=== PATIENT | male | born 1975 | race Caucasian/White ===

== ENCOUNTER 2022-07-17 09:03 | Emergency (ER) | payer MEDICAID, SELFPAY ==
[2022-07-17 10:35] VITALS: BP 144/90; PULSE 94; RESP 18; TEMP 36.7; O2SAT 97; BMI 33.2
[2022-07-17] MEDS: Ondansetron ODT 4 MG TAB.RAPDIS TRANSLINGU (10:44)
[2022-07-17 10:55] LABS: MANUAL DIFF FLAG NO
[2022-07-17 11:02] LABS: Basophils Percent Auto 0.2 % (0-2); Eosinophils Absolute Auto 0.1 X10*3/uL (0.0-0.4); Eosinophils Percent Auto 0.5 % (0-4); Imm Gran Abs Auto 0.07 X10*3/uL (0.00-0.03); Imm Gran Pct Auto 0.5 % (0.0-0.4); Lymphocytes Absolute Auto 2.3 X10*3/uL (1.2-4.9); Lymphocytes Percent Auto 16.6 % (20-40); Mean Corpuscular HGB Conc 33.3 g/dl (31.0-36.0); Mean Corpuscular Hemoglobin 26.8 pg (27.0-33.0); Mean Corpuscular Volume 80.3 fL (80.0-98.0); Mean Platelet Volume 8.8 fL (9.4-12.4); Monocytes Absolute Auto 1.1 X10*3/uL (0.1-1.2); Monocytes Percent Auto 8.4 % (2-11); Neutrophils Absolute Auto 10.1 x10*3/uL (2.0-8.3); Neutrophils Percent Auto 73.8 % (45-73); Platelet Count 366 X10*3/uL (160-400); Red Blood Count 5.23 X10*6/uL (4.60-5.80); Red Cell Distribution Width 13.5 % (11.0-16.0); White Blood Count 13.7 X10*3/uL (4.8-10.8)
[2022-07-17 11:38] LABS: Anion Gap 18 (12-20); Blood Urea Nitrogen 23 mg/dL (9-16); Calcium 9.6 mg/dL (8.4-10.2); Carbon Dioxide 30 mmol/L (22-29); Chloride 91 mmol/L (96-108); Creatinine Clr Calc Pharmacy 111.9; Estimated Glomerular Filt Rate > 60; Glucose Random 132 mg/dL (60-115); Magnesium 2.2 mg/dL (1.6-2.6); Potassium 3.4 mmol/L (3.3-5.1); Sodium 136 mmol/L (135-145)
[2022-07-17 12:24] VITALS: BP 155/94; PULSE 94; RESP 18; TEMP 36.7; O2SAT 96
--- NOTE | 2022-07-17 12:31 | ED_ITS ---
HPI - General Adult General Chief complaint: General Medical <Martin Miles - Last Filed: 07/17/22 12:31> Stated complaint: fever, dizzy, cramping <Martin Miles - Last Filed: 07/17/22 12:31> Time Seen by Provider: 07/17/22 16:57 <Martin Miles - Last Filed: 07/17/22 12:31> Source: patient <Calista Forbes NP - Last Filed: 07/17/22 23:00> Mode of arrival: ambulatory <Calista Forbes NP - Last Filed: 07/17/22 23:00> Limitations: no limitations <Calista Forbes NP - Last Filed: 07/17/22 23:00> History of Present Illness HPI narrative: 47-year-old male presents with muscle spasming in his legs and cramping in his abdomen over the past few days. He just started taking chlorthalidone for elevated blood pressure 4 days ago. He does report a subjective fever, and has intermittent dizziness. He does not describe any chest pain or pressure, cough, palpitations, shortness breath, abdominal pain, dysuria, hematuria, or weakness. <Calista Forbes NP - Last Filed: 07/17/22 23:00> Onset (ago): day(s) (4) <Calista Forbes NP - Last Filed: 07/17/22 23:00> Location: abdomen, left, right and lower extremity <Calista Forbes NP - Last Filed: 07/17/22 23:00> Radiation: non-radiation <Calista Forbes NP - Last Filed: 07/17/22 23:00> Severity: moderate <Calista Forbes NP - Last Filed: 07/17/22 23:00> Severity scale (1-10): 6 <Calista Forbes NP - Last Filed: 07/17/22 23:00> Quality: other (Cramping) <Calista Forbes NP - Last Filed: 07/17/22 23:00> Pain Consistency: intermittent <Calista Forbes NP - Last Filed: 07/17/22 23:00> Relieving factors: none <Calista Forbes NP - Last Filed: 07/17/22 23:00> Associated symptoms: fever/chills <Calista Forbes NP - Last Filed: 07/17/22 23:00> Treatments prior to arrival: none <Calista Forbes NP - Last Filed: 07/17/22 23:00> Related Data Home medications: Previous Rx's Medication Instructions Recorded losartan 25 mg tablet 25 mg PO DAILY #30 tabs 07/17/22 ondansetron 4 mg disintegrating 4 mg PO Q8H PRN nausea and 07/17/22 tablet vomiting #7 tabs <Martin Miles - Last Filed: 07/17/22 12:31> Allergies/adverse reactions: Allergies Allergy/AdvReac Type Severity Reaction Status Date / Time No Known Allergies Allergy Verified 07/17/22 10:34 <Martin Miles - Last Filed: 07/17/22 12:31> Review of Systems Review of Systems: Constitutional: Subjective Fever, No Chills Cardiovascular: No Chest Pain, No SOB Respiratory: No Cough, No Dyspnea Gastrointestinal: No Nausea, No Vomiting, No Diarrhea, positive abdominal cramping Genitourinary: No Dysuria, No Hematuria Musculoskeletal: positive leg cramping, No Myalgias, No Joint Swelling Skin: No Skin lacerations, No rash Neuro: No Weakness, No Numbness, No Paresthesias, positive Dizziness, No Headache <Calista Forbes NP - Last Filed: 07/17/22 23:00> Yes all other systems are reviewed and are negative <Calista Forbes NP - Last Filed: 07/17/22 23:00> [facility] Past Medical History Attestation statement: The following information was validated with the patient. <Calista Forbes NP - Last Filed: 07/17/22 23:00> Source: old records reviewed <Calista Forbes NP - Last Filed: 07/17/22 23:00> Social History Social History: Social History Advance Directives: No Advance Directives Information Provided: No <Martin Miles - Last Filed: 07/17/22 12:31> Physical Exam ED Vital Signs: Vital Signs - 24 hr 07/17/22 10:35 07/17/22 12:24 07/17/22 15:19 Temperature 98.1 F 98.0 F Pulse Rate 94 94 82 Respiratory Rate 18 18 18 Blood Pressure 144/90 H 155/94 H 159/90 H Pulse Oximetry 97 96 98 Oxygen Delivery Method Room Air Room Air Room Air 07/17/22 19:39 Temperature Pulse Rate 75 Respiratory Rate 16 Blood Pressure 132/78 Pulse Oximetry 97 Oxygen Delivery Method Room Air BMI result Body Mass Index 33.2 <Martin Miles - Last Filed: 07/17/22 12:31> Vital Signs - 24 hr 07/17/22 10:35 07/17/22 12:24 07/17/22 15:19 Temperature 98.1 F 98.0 F Pulse Rate 94 94 82 Respiratory Rate 18 18 18 Blood Pressure 144/90 H 155/94 H 159/90 H Pulse Oximetry 97 96 98 Oxygen Delivery Method Room Air Room Air Room Air 07/17/22 19:39 Temperature Pulse Rate 75 Respiratory Rate 16 Blood Pressure 132/78 Pulse Oximetry 97 Oxygen Delivery Method Room Air BMI result Body Mass Index 33.2 <Calista Forbes NP - Last Filed: 07/17/22 23:00> Appearance: Alert. Oriented X3. No acute distress. Eyes: Pupils equal, round and reactive to light. Sclera nonicteric ENT: Pharynx normal. Neck: Normal inspection. Neck supple. No vertebral tenderness or step-offs. No nuchal rigidity. No mastoid tenderness. CVS: Normal heart rate and rhythm. Pulses normal. Respiratory: No respiratory distress. Lung sounds clear to auscultation all lobes. Abdomen: Soft and nontender. No rebound or rigidity. No distention. No CVA tenderness. Skin: Skin warm and dry. Normal skin color. Normal skin turgor. Extremities: No lower extremity edema. Gait well-balanced well coordinated. Neuro: No motor deficit. No sensory deficit. Cranial nerves 2-12 intact <Calista Forbes NP - Last Filed: 07/17/22 23:00> Course Course Course Narrative: 47-year-old male presents for evaluation of abdominal cramping, he muscle spasms. Patient reports that he was started on chlorthalidone 4 days ago. Reports subjective fevers but is afebrile here. <Martin Carbajal Filed: 07/17/22 12:31> 47-year-old male presents for evaluation of abdominal cramping, he muscle spasms. Patient reports that he was started on chlorthalidone 4 days ago. Reports subjective fevers but is afebrile here. Patient is on methadone. Physical exam is unremarkable. Alert oriented x4. Answering questions politely and appropriately. No report of additional substance use with methadone. No indication of source of infection. COVID influenza RSV are negative. Lab values indicate an elevated white count of 13.7, BUN of 23. Glucose is elevated at 132, consistent with patient's history of diabetes. Do not have any prior labs for this patient. Will give 2 L of fluids for suspected dehydration. 17:36 2 L of fluid infusing. Plan of care is to discharge home with medication change from chlorthalidone to losartan. Patient does understand that he must follow up with his primary care physician to update them that had an adverse reaction to the chlorthalidone as well as an elevated BUN, suspected to be from either dehydration or medication reaction. Patient verbalized understanding of discharge instructions. Verbalized understandings of signs and symptoms indicating need for emergent intervention. <Calista Forbes NP - Last Filed: 07/17/22 23:00> Medications Administered Discontinued Medications Generic Name Dose Route Start Last Admin Trade Name Freq PRN Reason Stop Dose Admin Sodium Chloride 1,000 mls @ 999 mls/hr 07/17/22 17:00 07/17/22 20:10 Ns IVCONT 07/17/22 18:00 Infused .Q1H1M JULIUS Infusion Sodium Chloride 1,000 mls @ 999 mls/hr 07/17/22 17:15 07/17/22 20:10 Ns IVCONT 07/17/22 18:15 Infused .Q1H1M JULIUS Infusion Ondansetron HCl 4 mg 07/17/22 10:41 07/17/22 10:44 Ondansetron Odt 4 Mg Tab.Irvingdis TRANSLINGU 07/17/22 10:42 4 mg ONCE ONE Administration <Martin Miles - Last Filed: 07/17/22 12:31> Medications Administered Discontinued Medications Generic Name Dose Route Start Last Admin Trade Name Freq PRN Reason Stop Dose Admin Sodium Chloride 1,000 mls @ 999 mls/hr 07/17/22 17:00 03/22/23 20:10 Ns IVCONT 07/17/22 18:00 Infused .Q1H1M JULIUS Infusion Sodium Chloride 1,000 mls @ 999 mls/hr 07/17/22 17:15 07/17/22 20:10 Ns IVCONT 07/17/22 18:15 Infused .Q1H1M JULIUS Infusion Ondansetron HCl 4 mg 07/17/22 10:41 07/17/22 10:44 Ondansetron Odt 4 Mg Tab.Rapdis TRANSLINGU 07/17/22 10:42 4 mg ONCE ONE Administration <Calista Forbes NP - Last Filed: 07/17/22 23:00> Medical Decision Making Differential Diagnosis Differential Diagnoses: The differential diagnosis associated with the presentation includes <Calista Forbes NP - Last Filed: 07/17/22 23:00> Adverse reaction to medication, viral gastroenteritis, viral syndrome < Calista Forbes NP - Last Filed: 07/17/22 23:00> Lab Data MDM Lab Attestation statement: I reviewed the patient's lab results. <Calista Forbes NP - Last Filed: 07/17/22 23:00> Result Diagrams: 07/17/22 10:51 07/17/22 10:51 <Martin Miles - Last Filed: 07/17/22 12:31> Labs: Lab Results 07/17/22 07/17/22 07/17/22 Range/Units 10:51 10:51 14:43 WBC 13.7 H (4.8-10.8) X10*3/uL RBC 5.23 (4.60-5.80) X10*6/uL Hgb 14.0 (14.0-18.0) g/dl Hct 42.0 (42.0-52.0) % MCV 80.3 (80.0-98.0) fL MCH 26.8 L (27.0-33.0) pg MCHC 33.3 (31.0-36.0) g/dl RDW 13.5 (11.0-16.0) % Plt Count 366 (160-400) X10*3/uL MPV 8.8 L (9.4-12.4) fL Immature Gran % (Auto) 0.5 H (0.0-0.4) % Neut % (Auto) 73.8 H (45-73) % Lymph % (Auto) 16.6 L (20-40) % Pitkin % (Auto) 8.4 (2-11) % Eos % (Auto) 0.5 (0-4) % Baso % (Auto) 0.2 (0-2) % Lymph # (Auto) 2.3 (1.2-4.9) X10*3/uL Pitkin # (Auto) 1.1 (0.1-1.2) X10*3/uL Eos # (Auto) 0.1 (0.0-0.4) X10*3/uL Baso # (Auto) 0.0 (0.0-0.2) X10*3/uL Abs Immat Gran (auto) 0.07 H (0.00-0.03) X10*3/uL Absolute Neuts (auto) 10.1 H (2.0-8.3) x10*3/uL Absolute Nucleated RBC 0.000 (0.0-0.012) X10*3/uL Nucleated RBC % (auto) 0.0 (0.0-0.2) /100WBC Sodium 136 (135-145) mmol/L Potassium 3.4 (3.3-5.1) mmol/L Chloride 91 L (96-108) mmol/L Carbon Dioxide 30 H (22-29) mmol/L Anion Gap 18 (12-20) BUN 23 H (9-16) mg/dL Creatinine 0.94 (0.5-1.4) mg/dL Estim Creat Clear Calc 111.9 Estimated GFR > 60 Random Glucose 132 H (60-115) mg/dL Calcium 9.6 (8.4-10.2) mg/dL Magnesium 2.2 (1.6-2.6) mg/dL Influenza Type A (PCR) NEGATIVE (Negative) Influenza Type B (PCR) NEGATIVE (Negative) RSV RNA Qual (PCR) NEGATIVE (Negative) SARS-CoV-2 RNA (RT-PCR) NEGATIVE (Negative) <Martin Miles - Last Filed: 07/17/22 12:31> Lab Results 07/17/22 07/17/22 07/17/22 Range/Units 10:51 10:51 14:43 WBC 13.7 H (4.8-10.8) X10*3/uL RBC 5.23 (4.60-5.80) X10*6/uL Hgb 14.0 (14.0-18.0) g/dl Hct 42.0 (42.0-52.0) % MCV 80.3 (80.0-98.0) fL MCH 26.8 L (27.0-33.0) pg MCHC 33.3 (31.0-36.0) g/dl RDW 13.5 (11.0-16.0) % Plt Count 366 (160-400) X10*3/uL MPV 8.8 L (9.4-12.4) fL Immature Gran % (Auto) 0.5 H (0.0-0.4) % Neut % (Auto) 73.8 H (45-73) % Lymph % (Auto) 16.6 L (20-40) % Pitkin % (Auto) 8.4 (2-11) % Eos % (Auto) 0.5 (0-4) % Baso % (Auto) 0.2 (0-2) % Lymph # (Auto) 2.3 (1.2-4.9) X10*3/uL Pitkin # (Auto) 1.1 (0.1-1.2) X10*3/uL Eos # (Auto) 0.1 (0.0-0.4) X10*3/uL Baso # (Auto) 0.0 (0.0-0.2) X10*3/uL Abs Immat Gran (auto) 0.07 H (0.00-0.03) X10*3/uL Absolute Neuts (auto) 10.1 H (2.0-8.3) x10*3/uL Absolute Nucleated RBC 0.000 (0.0-0.012) X10*3/uL Nucleated RBC % (auto) 0.0 (0.0-0.2) /100WBC Sodium 136 (135-145) mmol/L Potassium 3.4 (3.3-5.1) mmol/L Chloride 91 L (96-108) mmol/L Carbon Dioxide 30 H (22-29) mmol/L Anion Gap 18 (12-20) BUN 23 H (9-16) mg/dL Creatinine 0.94 (0.5-1.4) mg/dL Estim Creat Clear Calc 111.9 Estimated GFR > 60 Random Glucose 132 H (60-115) mg/dL Calcium 9.6 (8.4-10.2) mg/dL Magnesium 2.2 (1.6-2.6) mg/dL Influenza Type A (PCR) NEGATIVE (Negative) Influenza Type B (PCR) NEGATIVE (Negative) RSV RNA Qual (PCR) NEGATIVE (Negative) SARS-CoV-2 RNA (RT-PCR) NEGATIVE (Negative) <Calista Forbes NP - Last Filed: 07/17/22 23:00> External Record Review No prior records at this facility for this patient <Calista Forbes NP - Last Filed: 07/17/22 23:00> Chronic Conditions Patient?s care impacted by: Diabetes and Hypertension <Calista Forbes NP - Last Filed: 07/17/22 23:00> Discharge Plan Discharge Clinical Impression: Muscle cramp, Elevated BUN, Nausea, Dehydration, Adverse drug reaction, Viral gastroenteritis <Martin Miles - Last Filed: 07/17/22 12:31> Patient Disposition: Home, Self-Care <Martin Miles - Last Filed: 07/17/22 12:31> Instructions: Gastroenteritis (ED), Leg Cramps (ED), Adverse Drug Reaction (ED), Muscle Cramp (ED) <Martin Miles - Last Filed: 07/17/22 12:31> Additional Instructions: You were evaluated for concerns regarding a new medication that you started for blood pressure. Please stop taking the chlorthalidone. I prescribed losartan 25 mg daily. Please update your primary care physician that you had some adverse reactions to the chlorthalidone and needed to have the medications changed Your evaluated for nausea and abdominal cramping. I do not feel that these symptoms are consistent with adverse drug reaction of chlorthalidone. I feel that this could possibly be a viral gastrointestinal illness. Please drink plenty of fluids. I prescribed Zofran to help with nausea. Take this medication as directed. This medication dissolved under the tongue. Thank you for choosing this emergency department for evaluation. Please follow-up with primary care physician as needed. Return to the emergency department for any new, concerning, or worsening symptoms. <Martin Miles - Last Filed: 07/17/22 12:31> Prescriptions: New losartan 25 mg tablet 25 mg PO DAILY Qty: 30 3RF ondansetron 4 mg tablet,disintegrating 4 mg PO Q8H PRN (Reason: nausea and vomiting) Qty: 7 0RF <Martin Miles - Last Filed: 07/17/22 12:31> Referrals: Anabell Álvarez PA [Primary Care Provider] - 2 weeks (Adverse reaction to medication) <Martin Miles - Last Filed: 07/17/22 12:31> Stand Alone Forms: Work/School Release <Martin Miles - Last Filed: 07/17/22 12:31> Interventions: ED Discharge Assessment Last Done: 07/17/22 20:11 <Martin Miles - Last Filed: 07/17/22 12:31> Discharge Date/Time: 07/17/22 20:11 <Martin Miles - Last Filed: 07/17/22 12:31>
[2022-07-17 15:19] VITALS: BP 159/90; PULSE 82; RESP 18; O2SAT 98
[2022-07-17 15:38] LABS: Influenza A PCR NEGATIVE (Negative); Influenza B PCR NEGATIVE (Negative); Resp Syncy Virus RNA Qual PCR NEGATIVE (Negative); SARS COV2 PCR INHOUSE NEGATIVE (Negative)
[2022-07-17] MEDS: 0.9 % Sodium Chloride 1,000 ML 999 ML IVCONT ×2 (17:06→17:42)
[2022-07-17 19:39] VITALS: BP 132/78; PULSE 75; RESP 16; O2SAT 97
== END 2022-07-17 20:11 | disposition home or self-care (01) ==
PROVIDERS: Physician Assistant; Emergency Provider Internal Medicine; PCP Physician Assistant
DX: M62.838 Other muscle spasm (principal); A08.4 Viral intestinal infection, unspecified; R11.0 Nausea; E86.0 Dehydration; T50.2X5A Adverse effect of carbonic-anhydrase inhibitors, benzothiadiazides and other diuretics, initial encounter; Y92.9 Unspecified place or not applicable; R79.89 Other specified abnormal findings of blood chemistry; Z20.822 Contact with and (suspected) exposure to COVID-19; Z20.828 Contact with and (suspected) exposure to other viral communicable diseases; F11.20 Opioid dependence, uncomplicated
CPT/HCPCS: 0241U; 36415; 80048; 83735; 85025; 96360; 96361; 99284